=== PATIENT | female | born 1950 | race Caucasian/White ===

== ENCOUNTER 2016-07-12 14:49 | Inpatient (IN) | payer BC ==
[~2016-07-12] VITALS: Ht 160 cm; Wt 91.8 kg
[~2016-07-12 14:49] MED LIST: ASPI1TAB69 PO; CHOL5000 PO; ENAL10TA PO; FURO1TAB62 PO; GLYB5TAB3 PO; LEVO88TA2 PO; METF1000 PO; PANT20 PO
--- NOTE | 2016-07-13 07:25 | MH ---
cc: DIMITRI,NADYA DATE OF ADMISSION 07/13/2016 DIAGNOSIS Four-part fracture displaced surgical neck right humerus. HISTORY She fell on 07/05/2016 while she was getting a shopping cart outside the supermarket. She somehow fell and injured it and went to [facility] for evaluation where they x-rayed her, put her in a sling and referred her for outpatient care. She was first seen by me on July 08, 2016 at which time she was evaluated and sent for a CT scan. She was seen back on July 11, 2016 at which time informed consent was obtained for reverse shoulder arthroplasty of the right shoulder. PERSONAL/SOCIAL HISTORY She does not smoke. Drinks alcohol occasionally. PAST MEDICAL HISTORY 1. She has type 2 diabetes. 2. High blood pressure 3. Hypothyroidism 4. Arthritis PAST SURGERIES 1. Lipoma removed left shoulder in [place]. 2. Lipoma removed from her back several years ago. CURRENT MEDICATIONS 1. Metformin 2. Enalapril 3. DiaBeta 4. Levothyroxine 5. Cervidil 6. Pantoprazole 7. Spironolactone ALLERGIES She claims allergy to LASIX TABLETS. PHYSICAL EXAM This is a somewhat anxious and apprehensive white female who is in a sling and swath. She complains of her rash, but I do not see any, but she states she itchy from being immobilized in the sling and swath. She wanted a prescription for Mycolog cream which is given. HEAD: Normocephalic. EYES: Pupils react to light. FACE: Symmetrical. HEART: Regular rhythm. No murmurs. LUNGS: Clear to auscultation. ABDOMEN: Soft and supple. EXTREMITIES: She denies any pain in the right elbow. Right shoulder is painful. There is some mild ecchymosis, but a lot of swelling. She has a good radial pulse and she moves her fingers well. Detailed neurovascular examination not possible. X-ray done at [facility] and followup x-ray done in my office last week reveals a comminuted four-part fracture of the surgical neck of the humerus with a fracture through the head of the humerus, significant impaction and shortening and about 45 degrees of anterior angulation at the fracture site. A CT scan confirms these findings. The alternatives to treatment discussed in detail with the patient. Open reduction, internal fixation could be done but it would be very difficult to get anatomical fixation and also very likely the fixation will fail at least in the form of recurrence of impaction and varus deformity of the shoulder compromising results. The other options were different types of arthroplasties. Hemiarthroplasties have a high risk of failure of the tuberosities especially at this age and reverse shoulder probably has the most consistent results in terms of restoring function. The potential of infection, hematoma, dislocation, fractures, phlebitis, blood clots, revision, re-surgery, permanent restriction in range of motion and neurovascular injury have all been discussed with the patient in the presence of her and the last time I saw her in the presence of her son who is a nurse. Informed consent has been obtained. No guarantees made. MD BLANCA Magdaleno/RADHA /6:57 AM /7:10 AM
[2016-07-13] MEDS ORDERED: BUPIVACAINE HCL PF 0.5% 30 ML VIAL NERV BLOCK ONE (07:40)
[2016-07-13] MEDS: CHLORHEXIDINE GLUCONATE 4% SOLN 120 ML BTL TOPICAL SCH (10:45)
[2016-07-13] MEDS ORDERED: ceFAZolin 2 GM PREMIX 50 ML IV SCH (10:45)
[2016-07-13] MEDS ORDERED: VANCOMYCIN 1250 MG/NS 250 ML (for 70-84 kg) IV SCH ×2 (10:45)
[2016-07-13] MEDS ORDERED: METOPROLOL TARTRATE 25 MG TAB PO PRN (10:45)
[2016-07-13] MEDS ORDERED: INSULIN HUMAN REGULAR 1,000 UNITS/10 ML VIAL SQ PRN (10:45)
[2016-07-13 10:49] VITALS: BP 128/78; PULSE 91; RESP 20; TEMP 97.9; O2SAT 97
[2016-07-13] MEDS ORDERED: SODIUM CHLORID 0.9% 500 ML IV SCH (11:00)
[2016-07-13] MEDS ORDERED: LACTATED RINGER'S 1000 ML IV SCH (11:00)
[2016-07-13] MEDS ORDERED: FAMOTIDINE 20 MG/2 ML VIAL ONE (11:49)
[2016-07-13] MEDS ORDERED: MIDAZOLAM HCL 5 MG/5 ML VIAL ONE (11:49)
[2016-07-13] MEDS ORDERED: diphenhydrAMINE HCL 50 MG/ML VIAL ONE (11:55)
[2016-07-13] MEDS ORDERED: PHENYLEPHRINE HCL 10 MG/ML VIAL IV ONE (12:00)
[2016-07-13] MEDS ORDERED: PROPOFOL 200 MG/20 ML AMP IV ONE (12:13)
[2016-07-13] MEDS ORDERED: PHENYLEPH/NS 1000 MCG/10 ML SYR IV ONE (12:14)
[2016-07-13] MEDS ORDERED: LACTATED RINGER'S 1000 ML INJ 1,000 ML IV ONE (12:14)
[2016-07-13] MEDS ORDERED: ONDANSETRON HCL 4 MG/2 ML VIAL IV PUSH ONE (12:14)
[2016-07-13] MEDS ORDERED: ePHEDrine/NS 25 MG/5 ML SYR IV ONE (12:14)
[2016-07-13] MEDS ORDERED: TOBRAMYCIN SULFATE 1200 MG VIAL ONE (13:06)
[2016-07-13] MEDS ORDERED: GENTAMICIN SULFATE 80 MG/2 ML VIAL ONE ×2 (13:07)
[2016-07-13] MEDS ORDERED: EPINEPHrine HCL (1:1000) 1 MG/ML VIAL ONE (13:07)
[2016-07-13] MEDS ORDERED: EPINEPHrine HCL (1:1000) 30 MG/30 ML VIAL ONE (13:08)
[2016-07-13] MEDS ORDERED: ACETAMINOPHEN 1000 MG/100 ML VIAL IV ONE (13:55)
[2016-07-13] MEDS ORDERED: fentaNYL CITRATE 250 MCG/5 ML AMP ONE (13:56)
[2016-07-13] MEDS ORDERED: TOBRAMYCIN SULFATE 1200 MG VIAL OTHER ONE (17:44)
[2016-07-13] MEDS ORDERED: VANCOMYCIN HCL 1000 MG VIAL ONE (17:49)
[2016-07-13] MEDS ORDERED: ceFAZolin INJ 1,000 MG VIAL ONE (17:51)
[2016-07-13] MEDS ORDERED: ceFAZolin INJ 1,000 MG VIAL IV ONE (17:53)
--- NOTE | 2016-07-13 19:14 | RADRPT ---
EXAM DATE/TIME: 07/13/2016 18:16 [facility] COMPARISON: No previous studies available for comparison. INDICATIONS : Right shoulder total arthroplasty. MEDICAL HISTORY : None. SURGICAL HISTORY : None. ENCOUNTER: Subsequent ACUITY: 1 day PAIN SCORE: Non-responsive. LOCATION: Right shoulder FINDINGS: The patient is status post right shoulder replacement. The prosthesis appears to be in good position . CONCLUSION: 1. Status post right shoulder replacement with prosthesis in good position. Jb Sanders MD on July 13, 2016 at 18:52 Board Certified Radiologist. This report was verified electronically.
[2016-07-13] MEDS ORDERED: MORPHINE SULFATE 30 MG/30 ML PCA IV SCH (19:30)
[2016-07-13] MEDS ORDERED: Post-op Orders (for Pharmacy) MISC XX ONE (19:30)
[2016-07-13] MEDS ORDERED: NALOXONE HCL 0.4 MG/ML AMP IV PRN (19:30)
[2016-07-13] MEDS ORDERED: diphenhydrAMINE HCL 50 MG/ML VIAL IV PRN (19:30)
[2016-07-13] MEDS ORDERED: ACETAMINOPHEN/HYDROcodone 325 MG/5 MG TAB PO PRN (19:30)
[2016-07-13] MEDS ORDERED: PROMETHAZINE HCL 25 MG TAB PO PRN (19:30)
[2016-07-13] MEDS ORDERED: ONDANSETRON HCL 4 MG/2 ML VIAL IVP PRN (19:30)
[2016-07-13] MEDS ORDERED: MAGNESIUM HYDROXIDE SUSP 30 ML CUP PO PRN (19:30)
[2016-07-13] MEDS ORDERED: SODIUM CHLORIDE 0.9% FLUSH 5 ML FLUSH IVF PRN (19:30)
[2016-07-13] MEDS ORDERED: FUROSEMIDE 20 MG TAB PO PRN (19:45)
[2016-07-13 20:00] VITALS: BP_SYST 127; BP_SYST 97; BP_DIAS 56; BP_DIAS 80; PULSE 101; PULSE 97; RESP 15; RESP 19; TEMP 97.2; TEMP 97.9; O2SAT 95; O2SAT 97
[2016-07-13] MEDS: DEXT 5%-NACL 0.9% 1000 ML INJ 1,000 ML IV SCH (20:00)
--- NOTE | 2016-07-13 20:38 | RADRPT ---
EXAM DATE/TIME: 07/13/2016 19:46 [facility] COMPARISON: No previous studies available for comparison. INDICATIONS : Post op right shoulder. MEDICAL HISTORY : None. SURGICAL HISTORY : Right shoulder total arthroplasty. ENCOUNTER: Initial ACUITY: 1 day PAIN SCORE: Non-responsive. LOCATION: Right shoulder FINDINGS: A right shoulder replacement has been performed. The prosthesis appears to be adequate in position. CONCLUSION: 1. Status post right shoulder replacement with prosthesis adequate in position. Jb Sanders MD on July 13, 2016 at 20:29 Board Certified Radiologist. This report was verified electronically.
[2016-07-13] MEDS: KETOROLAC TROMETHAMINE 30 MG/ML (IVP) VIAL IVP SCH (20:41)
--- NOTE | 2016-07-13 20:41 | EKG ---
Date Performed: 07/13/2016 Time Performed: 11:38:34 PTAGE: 65 years EKG: Sinus rhythm ABNORMAL ECG PREVIOUS TRACING : 05/11/2014 23.07 Compared to prior tracing no significant change DOCTOR: Sachi Mcmahon Interpretating Date/Time 07/13/2016 20:40:39
[2016-07-13] MEDS: SODIUM CHLORIDE 0.9% FLUSH 5 ML FLUSH IVF SCH (21:00)
[2016-07-13] MEDS ORDERED: ZOLPIDEM TARTRATE 5 MG TAB PO PRN (21:00)
[2016-07-13] MEDS: ENALAPRIL MALEATE 10 MG TAB PO SCH (23:38)
[2016-07-14] VITALS (8 sets, daily range): BP systolic 89–167; BP diastolic 59–81; PULSE 94–106; RESP 16–24; TEMP 97.3–98.5; O2SAT 93–98
[2016-07-14] MEDS: KETOROLAC TROMETHAMINE 30 MG/ML (IVP) VIAL IVP SCH ×3 (03:34→21:26)
[2016-07-14] MEDS: ceFAZolin 2 GM PREMIX 50 ML IV SCH ×2 (03:34→09:28)
[2016-07-14 05:58] LABS: BICARBONATE 23.5 MEQ/L (21.0-32.0); POTASSIUM 4.1 MEQ/L (3.5-5.1)
[2016-07-14] MEDS: LEVOTHYROXINE SODIUM 88 MCG TAB PO SCH (06:00)
[2016-07-14] MEDS: DEXT 5%-NACL 0.9% 1000 ML INJ 1,000 ML IV SCH ×3 (06:22→23:51)
[2016-07-14] MEDS: ACETAMINOPHEN 1000 MG/100 ML VIAL IV SCH ×2 (06:23→16:32)
[2016-07-14 06:24] LABS: HEMATOCRIT 32.2 % (35.0-46.0)
[2016-07-14 07:20] LABS: REVIEW FLAG FINAL
--- NOTE | 2016-07-14 07:50 | PD.ORT.PN ---
Subjective Post Op Day #: 1 Pain Scale: 0 Subjective Remarks I heard you had problems in the operating room Block not worn Distance Walked Already got up for BRP Objective Vitals Vital Signs Date Time Temp Pulse Resp B/P Pulse Ox O2 Delivery O2 Flow Rate FiO2 07/14/16 04:00 97.8 102 18 122/70 96 07/14/16 00:01 Nasal Cannula 2.00 07/14/16 00:01 97.3 101 18 127/67 97 07/13/16 20:15 99.5 104 14 123/78 96 Nasal Cannula 3 07/13/16 20:00 97.9 101 19 127/80 97 07/13/16 20:00 106 14 120/72 96 Nasal Cannula 3 07/13/16 19:45 109 14 125/82 97 Nasal Cannula 3 07/13/16 19:30 113 13 116/74 96 Nasal Cannula 3 07/13/16 19:16 99.9 102 16 151/86 94 Nasal Cannula 3 07/13/16 10:49 97.9 91 20 128/78 97 I/O 07/13/16 07/13/16 07/13/16 07/14/16 07/14/16 07/14/16 07:00 15:00 23:00 07:00 15:00 23:00 Intake Total 2776 ml 300 ml Output Total 410 ml Balance 2366 ml 300 ml Intake Oral 240 ml 300 ml IV Total 336 ml Other 2200 ml Output Urine Total 400 ml Estimated Blood Loss 10 ml # Voids 1 2 1 Result Diagram: 07/14/16 0520 07/14/16 0520 Imaging Last 72 hours Impressions Shoulder X-Ray 07/13/16 0000 Signed Impressions: Service Date/Time: Wednesday, July 13, 2016 19:46 - CONCLUSION: 1. Status post right shoulder replacement with prosthesis adequate in position. Jb Sanders MD Shoulder X-Ray 07/13/16 0000 Signed Impressions: Service Date/Time: Wednesday, July 13, 2016 18:16 - CONCLUSION: 1. Status post right shoulder replacement with prosthesis in good position. Jb Sanders MD Objective Remarks Awake, a little foggy, comfortable Arm in S & S Radial pulse good. Block has not started to wear. Assessment & Plan Ortho Post Op Day #: 1 Problem List: Assessment and Plan 1 day post RSA Advised patient that surgery took longer than anticipated and also glenoid component had to be repositioned on basis of x rays. Post op xray shown to patient, it looks satisfactory. Hernando Morgan MD Jul 14, 2016 07:50
[2016-07-14] MEDS ORDERED: ACETAMINOPHEN 1000 MG/100 ML VIAL IV SCH (08:00)
[2016-07-14] MEDS ORDERED: VANCOMYCIN INJ 1,500 MG in SODIUM CHLORID 0.9% 500 ML INJ 500 ML IV SCH (08:00)
[2016-07-14] MEDS: SODIUM CHLORIDE 0.9% FLUSH 5 ML FLUSH IVF SCH ×2 (09:27→21:00)
[2016-07-14] MEDS: PANTOPRAZOLE SOD 20 MG DELAYED RELEASE TAB PO SCH (09:28)
[2016-07-14] MEDS: ENALAPRIL MALEATE 10 MG TAB PO SCH ×2 (09:28→21:26)
[2016-07-14] MEDS: CHOLECALCIFEROL (VIT D3) 1000 UNIT TAB PO SCH (09:28)
[2016-07-14] MEDS: glyBURIDE 5 MG TAB PO SCH (09:32)
[2016-07-14] MEDS: metFORMIN HCL 500 MG TAB PO SCH ×2 (09:32→16:32)
[2016-07-14] MEDS: ACETAMINOPHEN/HYDROcodone 325 MG/5 MG TAB PO PRN ×2 (09:34→13:46)
[2016-07-14] MEDS: ASPIRIN EC 81 MG TABEC PO SCH (09:36)
--- NOTE | 2016-07-14 10:27 | MB ---
cc: BILL MOSS DATE OF CONSULTATION 07/14/2016 DATE OF 1950 ORIGINAL DIAGNOSIS Four-part fracture, displaced of the neck of the right humerus, status post fall. HISTORY OF PRESENT ILLNESS According to the record, the patient was in the supermarket and when getting a shopping cart lost her balance and fell on 07/05/2016. According to the record, she was evaluated by [facility] and the patient was put in a sling with her right arm and told to follow up with Ortho on July 08, 2016. She then was evaluated for her injury and sent for a CT scan. She was seen back on July 11 for a surgical procedure for reverse shoulder arthroplasty of the right shoulder. She is currently resting in the hospital, does suffer from some mild to moderate anxiety but denies any pain of the right shoulder. She states that she still has numbness postop. The patient does note a mild hacking cough and just does not appear to be able to get comfortable in the bed. The shoulder is immobilized with an ice bag. PAST MEDICAL HISTORY 1. Diabetes type 2 with oral hypoglycemics. 2. Hypertension. 3. Arthritis. 4. Hypothyroidism. 5. Anxiety. PAST SURGICAL HISTORY 1. Lipoma removed from the left shoulder. 2. Lipoma removed from her back several years ago. 3. Currently status post right shoulder replacement with prosthesis. ALLERGIES AMOXICILLIN. MEDICATIONS 1. Bowel regimen. 2. Xarelto. 3. Aspirin. 4. Vitamin D. 5. DiaBeta. 6. Glucophage. 7. Protonix. 8. Vancomycin IV. 9. Tylenol IV. 10. Synthroid. 11. Ambien. 12. Vasotec. 13. Toradol. 14. Lasix 20 mg p.r.n. 15. Pain management. 16. Antiemetics p.r.n. nausea. 17. Gentle hydration. SOCIAL HISTORY The patient is , currently lives in the home with her and two children. Social rare alcohol. Denies any tobacco or illicit drugs. REVIEW OF SYSTEMS A 12-point review was obtained. Positives noted in the HPI which includes some cough, mild to moderate anxiety, mild discomfort, not related to the shoulder. Other systems are negative or unremarkable. PHYSICAL EXAMINATION VITAL SIGNS: Temperature is 97.6, pulse 96, respirations 10, blood pressure 128/81. O2 sat 93 on 2 liters nasal cannula O2. GENERAL: Obese, female. Looks to be her stated age, resting in the bed, attempting to get comfortable in the bed. HEENT: Atraumatic, normocephalic. Mucous membranes are pink and moist. PERRLA. NECK: Supple. HEART SOUNDS: S1, S2. Regular rate and rhythm. No murmurs, rubs, or gallops. PULMONARY: Essentially clear anteriorly and posteriorly, without wheezes, rhonchi or rales. ABDOMEN: Round, soft, non-tender, non-distended. Active bowel sounds. MUSCULOSKELETAL: Moves her left arm and lower extremities with purpose. Right arm is immobilized. Mild amount of swelling noted in her fingers. NEUROLOGIC: She is alert, oriented, anxious. Speech is clear. SKIN: [place], warm and dry. PSYCHOLOGICAL: Affect and judgment normal. Anxiety. DIAGNOSTIC DATA Hemoglobin 10.7, hematocrit of 32.2. Chemistry: Sodium 144, potassium 4.1, chloride 112, carbon dioxide 23.5, anion gap 9, BUN 19, creatinine 0.90, GFR 63, random glucose 201, calcium 8. IMAGING STUDIES Shoulder X-ray: In good position with prosthesis. ASSESSMENT AND PLAN 1. Diabetes mellitus. 2. The patient is status post right shoulder replacement for fracture of the head of the humerus with good alignment. 3. Hypertension. 4. Hypothyroidism. 5. Arthritis. 6. Anxiety disorder. Our plan is to follow the patient's medical management and monitor her vital signs as well as any lab work. Ortho will follow her pain management and any needs involved with her surgical procedure. At this time the patient is being seen per Case Management to look at discharge planning for physical therapy when released per Ortho. We will monitor bowel regimen. PUD prophylaxis with Protonix. The patient is currently on Xarelto. She was admitted to inpatient status. Diet progression will be to a regular diabetic diet. The patient currently has gentle hydration and we will monitor those needs. IV antibiotics with vancomycin. Physical therapy will be involved in her care. 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
[2016-07-14] MEDS: CHLORHEXIDINE GLUCONATE 4% SOLN 120 ML BTL TOPICAL SCH (11:02)
[2016-07-14] MEDS ORDERED: GLUCAGON 1 MG/ML VIAL OTHER PRN (15:30)
[2016-07-14] MEDS ORDERED: DEXTROSE 50% IN WATER 50 ML VIAL(D50) IV PUSH PRN (15:30)
[2016-07-14] MEDS: INSULIN ASPART SUPPLEMENTAL SCALE SQ SCH ×2 (16:26→21:52)
[2016-07-14] MEDS: MORPHINE SULFATE 4 MG/ML INJ IV PUSH PRN ×2 (17:50→19:36)
[2016-07-14] MEDS ORDERED: RIVAROXABAN 10 MG TAB PO SCH (18:00)
[2016-07-14] MEDS: DOCUSATE SODIUM 100 MG CAP PO SCH (21:25)
[2016-07-15] MEDS: MORPHINE SULFATE 4 MG/ML INJ IV PUSH PRN ×2 (00:01→04:12)
[2016-07-15 00:19] VITALS: BP 149/80; PULSE 99; RESP 18; TEMP 98.4; O2SAT 95
[2016-07-15 01:05] VITALS: BP 152/74; PULSE 94; RESP 16; TEMP 97.5; O2SAT 96
[2016-07-15 01:20] VITALS: PULSE 87
[2016-07-15] MEDS: ACETAMINOPHEN/HYDROcodone 325 MG/5 MG TAB PO PRN ×3 (01:23→13:28)
[2016-07-15 04:00] VITALS: BP 127/67; PULSE 99; RESP 16; TEMP 97.9; O2SAT 95
[2016-07-15] MEDS: ACETAMINOPHEN 1000 MG/100 ML VIAL IV SCH (04:11)
[2016-07-15] MEDS: KETOROLAC TROMETHAMINE 30 MG/ML (IVP) VIAL IVP SCH ×2 (04:12→12:35)
[2016-07-15] MEDS: LEVOTHYROXINE SODIUM 88 MCG TAB PO SCH (04:12)
[2016-07-15] MEDS: INSULIN ASPART SUPPLEMENTAL SCALE SQ SCH ×2 (05:50→11:00)
[2016-07-15] MEDS: SODIUM CHLORIDE 0.9% FLUSH 5 ML FLUSH IVF SCH (09:00)
[2016-07-15] MEDS: PANTOPRAZOLE SOD 20 MG DELAYED RELEASE TAB PO SCH (09:40)
[2016-07-15] MEDS: ASPIRIN EC 81 MG TABEC PO SCH (09:40)
--- NOTE | 2016-07-15 09:40 | HHI.PR ---
Subjective Remarks Resting in bed Appetite fair Encouraging by mouth fluids Constipation mild in room this a.m. Afebrile (Antoinette Bennett) Objective Objective Results - Vital Signs Date Time Temp Pulse Resp B/P Pulse Ox O2 Delivery O2 Flow Rate FiO2 07/15/16 04:00 97.9 99 16 127/67 95 07/15/16 01:20 87 07/15/16 01:05 97.5 94 16 152/74 96 07/15/16 00:19 Room Air 07/15/16 00:19 98.4 99 18 149/80 95 07/14/16 20:15 99 07/14/16 20:00 98.5 106 18 167/74 96 07/14/16 20:00 Room Air 07/14/16 16:00 97.9 98 24 135/70 98 07/14/16 12:00 98.0 104 20 125/64 94 07/14/16 12:00 98.0 104 20 125/64 94 I/O 07/14/16 07/14/16 07/14/16 07/15/16 07/15/16 07/15/16 07:00 15:00 23:00 07:00 15:00 23:00 Intake Total 1063 ml 480 ml 1656 ml 648 ml Balance 1063 ml 480 ml 1656 ml 648 ml Intake Oral 300 ml 480 ml 720 ml 240 ml IV Total 763 ml 936 ml 408 ml # Voids 1 4 3 1 # Bowel Movements 0 0 (Antoinette Bennett) Result Diagram: 07/14/16 0520 07/14/16 0520 ROS General: Weakness (postop day 2) GI: Other (constipation mild) Neuro/MS: Other (anxiety probably chronic) (Antoinette Bennett) Physical Exam Physical Exam PHYSICAL EXAMINATION GENERAL: This is an obese well-developed, well-nourished female who appears to be in no acute distress. She is alert and awake HEAD: Normocephalic without any lesion or mass noted. Facial features appear symmetric. OROPHARYNGEAL: Oropharynx without erythema or edema. NECK: Supple. No nuchal rigidity or lymphadenopathy. Trachea midline without deviation. CARDIAC: Regular rhythm, regular rate, S1 and S2 are heard. Murmur none no gallops or rubs. LUNGS: Clear to auscultation bilaterally. ABDOMEN: Soft, nontender, no organomegaly or masses. Bowel sounds are heard in all four quadrants. No rebound. No guarding. EXTREMITIES: No lower extremity edema. Pulses equal bilateral. NEUROLOGICAL: Patient mood and affect appropriate. Mild anxiety SKIN:Warm and moist Objective Remarks I just can't get comfortable in this bed (Antoinette Bennett) A/P Assessment and Plan 1. Diabetes mellitus. 2. The patient is status post right shoulder replacement for fracture of the head of the humerus with good alignment. 3. Hypertension. 4. Hypothyroidism. 5. Arthritis. 6. Anxiety disorder. Vital signs reviewed afebrile pulse respiration and blood pressure in normal ranges We will monitor bowel regimen, stool softeners and laxatives to be given today. Drinking coffee also this morning states that will help PUD prophylaxis with Protonix. patient is currently on Xarelto regular diabetic diet., Encourage by mouth fluids We'll recheck labs in the morning, monitor acute kidney injury with B UN Out of bed today and increase activity with physical therapy Anxiety appears to be chronic, supportive care to patient and Discussed With: Nurse, Family, Other (Dr. Moss, patient seen on his behalf) ( Antoinette Bennett) Assessment and Plan Patient seen and examined as above Medications and labs reviewed Plan of care discussed with CLINICAL CASE MANAGER Discussed with patient and family at bedside Agree with above plan of care (Kymberly Moss MD) Antoinette Bennett Jul 15, 2016 09:40 Kymberly Moss MD Jul 15, 2016 13:18
[2016-07-15] MEDS: ENALAPRIL MALEATE 10 MG TAB PO SCH (09:41)
[2016-07-15] MEDS: DOCUSATE SODIUM 100 MG CAP PO SCH (09:41)
[2016-07-15] MEDS: glyBURIDE 5 MG TAB PO SCH (09:41)
[2016-07-15] MEDS: metFORMIN HCL 500 MG TAB PO SCH (09:41)
[2016-07-15] MEDS: CHOLECALCIFEROL (VIT D3) 1000 UNIT TAB PO SCH (09:41)
[2016-07-15] MEDS ORDERED: ASPI325T PO (09:58)
[2016-07-15] MEDS ORDERED: MAGNESIUM HYDROXIDE SUSP 30 ML CUP PO ONE (10:00)
--- NOTE | 2016-07-15 10:00 | HHI.FF ---
Face to Face Verification Diagnosis: (1) DM (diabetes mellitus) (2) Hyperlipidemia (3) Hypothyroidism (4) Hypertension (5) Status post reverse arthroplasty of right shoulder Nursing Nursing: Dressing changes Dressing Changes: Daily dressing change, Coverderm/Primapore I have seen patient Nuvia Mo on 07/15/16. My clinical findings support the need for the requested home health care services because: Limited ability to care for self I certify that my clinical findings support that this patient is homebound because: Post-op weakness Unable to use public transportation Hernando Morgan MD Jul 15, 2016 10:00
--- NOTE | 2016-07-15 10:06 | PD.ORT.PN ---
Subjective Post Op Day #: 2 Pain Scale: not bad Subjective Remarks Block worn and so hurts, denies numbness Objective Vitals Vital Signs Date Time Temp Pulse Resp B/P Pulse Ox O2 Delivery O2 Flow Rate FiO2 07/15/16 04:00 97.9 99 16 127/67 95 07/15/16 01:20 87 07/15/16 01:05 97.5 94 16 152/74 96 07/15/16 00:19 Room Air 07/15/16 00:19 98.4 99 18 149/80 95 07/14/16 20:15 99 07/14/16 20:00 98.5 106 18 167/74 96 07/14/16 20:00 Room Air 07/14/16 16:00 97.9 98 24 135/70 98 07/14/16 12:00 98.0 104 20 125/64 94 07/14/16 12:00 98.0 104 20 125/64 94 I/O 07/14/16 07/14/16 07/14/16 07/15/16 07/15/16 07/15/16 07:00 15:00 23:00 07:00 15:00 23:00 Intake Total 1063 ml 480 ml 1656 ml 648 ml Balance 1063 ml 480 ml 1656 ml 648 ml Intake Oral 300 ml 480 ml 720 ml 240 ml IV Total 763 ml 936 ml 408 ml # Voids 1 4 3 1 # Bowel Movements 0 0 Result Diagram: 07/14/16 0520 07/14/16 0520 Imaging Last 72 hours Impressions Shoulder X-Ray 07/13/16 0000 Signed Impressions: Service Date/Time: Wednesday, July 13, 2016 19:46 - CONCLUSION: 1. Status post right shoulder replacement with prosthesis adequate in position. Jb Sanders MD Shoulder X-Ray 07/13/16 0000 Signed Impressions: Service Date/Time: Wednesday, July 13, 2016 18:16 - CONCLUSION: 1. Status post right shoulder replacement with prosthesis in good position. Jb Sanders MD Objective Remarks A,A,& O Sitting up in chair. S & s on Moves fingers wrist and elbow flexion actively. Denies numbness Dry new drsg on Has ice on it. Assessment & Plan Ortho Post Op Day #: 2 Problem List: Assessment and Plan 2 day post RSA DC withHC To keep S & S on alltimes except cleaning and dressing, no bath or showers Has hydrocodone To take one 325 mg ASA OTC daily for VTE prophylaxis. She was up and BRP surgery evening and up and about, so AMOR lott To see me next Hernando Morgan MD Jul 15, 2016 10:06
[2016-07-15 14:02] VITALS: BP 116/86; PULSE 95; RESP 16; TEMP 97.8; O2SAT 95
--- NOTE | 2016-07-16 23:24 | MP ---
cc: NADYA MORGAN DATE OF SURGERY 07/13/2016 PREOPERATIVE DIAGNOSIS Four-part displaced fracture surgical neck and right humerus with subluxation of the head of the humerus. POSTOPERATIVE DIAGNOSIS Four-part displaced fracture surgical neck and right humerus with subluxation of the head of the humerus. OPERATIVE PROCEDURE 1. Reverse shoulder arthroplasty right shoulder 2. Open reduction internal fixation of greater and lesser tuberosity fractures with autogenous bone graft. SURGEON Dr. William Morgan ANESTHESIA General TECHNIQUE After induction of general anesthesia, the patient was placed on the beach-chair positioner and appropriate positioning carried out with the head and neck properly positioned and the right shoulder girdled free for surgical intervention. The lower extremities were properly and safely positioned. Right upper extremity, right shoulder thoroughly prepped with alcohol and ChloraPrep and draped in routine fashion with double Ioban drapes. A standard deltopectoral incision made, deepened through subcutaneous tissue. Deltopectoral interval was developed saving the cephalic vein laterally. During the procedure, the cephalic vein sprung a leak and, therefore, we had to isolate it, clamp, cut and ligate it. The pectoralis major attachment is detached for about 1 cm. The biceps tendon was identified, traced as far up into the joint as possible and tenotomy was carried out followed by tenodesis of the biceps tendon to the upper margin of the intact pectoralis major. The rest of the tendon was sacrificed. We now began the tedious process of outlining the fracture. The greater tuberosity fracture easily identified and noted. The lesser tuberosity fracture extended all the way beyond the bicipital groove and it was a fairly large fragment with at least being 2 cm wide and about 3 cm superiorly inferior. This made surgery and exposure difficult, but we had to maintain this properly with good attachment of the subscapularis tendon. We did develop it in the rotator cuff interval to get more exposure. The limited subperiosteal dissection upper end of the shaft was carried out. The head of the humerus was basically dislocated out of the glenoid and basically posterior with the fracture surface directly pacing the surgeon. This head fragment was now removed and it was only three-quarters of the head. The other 25% of the articular surface is still attached to the greater tuberosity. Some of the cartilage on that was excised. A jaw area was thoroughly lavaged and suctioned out. Cancellus bone from the head was harvested for later use. As glenoid was exposed, we had good exposure. A guidewire was introduced using the guide for the central hole, but the hole was somewhat shallow and somewhat anterior and, therefore, a freehand technique was used to put the drill and there was good depth and, therefore, the corkscrew reamer guide was placed and the glenoid was reamed followed by introduction of the baseplate and the locking screws. Prior to this, we had prepared the tuberosities with multiple sutures including three #5 FiberWire sutures through the infraspinatus and held with hemostats. A circumferential fiber loop was placed through the lesser trochanter and greater trochanter behind the humerus. A fiber suture #2 was placed through the central portion of the supraspinatus tendon. Two double #2 FiberWire sutures were placed through the infraspinatus and held with hemostats. The shaft was prepared and then trial reduction was carried out at which point x-ray was done which showed, however, that the glenoid baseplate is too inclined and therefore we have to correct it. Joints are dislocated. Trial implants removed. Glenoid glenosphere and the baseplate is removed. The spiral reamer guide for the glenoid was redirected in a more horizontal direction and more retroversion and the reaming was carried out followed by insertion of the baseplate and locking screws. X-rays revealed significant improvement in the position of the baseplate and indeed it is good from a biomechanical perspective even though it could have be a little more horizontal, but we did not want to change it. The glenosphere was put on the baseplate and the locking screw was placed. The shaft was now prepared and we tried the #8 broach which actually is too proud. Therefore, the #6 broach was used which rests on the calcar medially and the height laterally looks just about right. Two drill holes were placed 2 cm below the fracture site and the fiber loop through the supraspinatus was passed through the posterior hole and #2 FiberWire passed through anterior to posterior through the two holes that held with hemostats. The canal was thoroughly suctioned and dried and cobalt cement with tobramycin in it was injected into the canal and pressurized followed by removal of the upper portion of the cement and replacing with the cancellus bone graft which is packed in place followed by introduction of the stem in appropriate retroversion impacted into place and held until the cement solidified. There is good anchoring of the stem and good solidification of the stem. The 4-mm standard insert was used for the trial. Trial reduction is hard to assess because of the tuberosity fragments, but everything looked stable but it is decided to go ahead and use a 4 mm semi constraint . Joints were dislocated followed by introduction of a semi constraint 4-mm insert and then the joint reduced and everything looks good at this point in time including abduction, flexion and rotation stability. The tedious process repair in the tuberosities was now carried out using the double FiberWire sutures that have been passed through the posterior fin of the implant and these were tied with the rack and hitch technique bringing the tuberosity forward and over the implant. The vertical fiber loop was now tied. I then proceeded to pass the #5 FiberWire through the subscapularis insertion to the lesser tuberosity and tied and then the circumferential cerclage fiber loop was tied getting excellent tuberosity repair. The #2 FiberWire in the shaft was then looped through the supraspinatus and tied. Final position, alignment, stability are all good. Residual bone graft was packed into the fracture site. Wound was irrigated with saline solution followed by closure of the fascia with #2 Stratifix, subcutaneous tissue with 2-0 Vicryl, skin with hitesh. Dressing was applied with Xeroform, 4x4s, ABD and Medipore tape. Sling and swath was applied. The patient transferred to recovery room in satisfactory condition. The patient tolerated the procedure well. TRANSFUSIONS AND COMPLICATIONS None. ESTIMATED BLOOD LOSS 600-700 mL. PROGNOSIS Guarded to good. This was both in terms of the tuberosity healing and the baseplate fixation since I had to redo it, but we did get good resistance to the central screw and we also had four locking screws. MD BLANCA Magdaleno/ /7:40 PM /11:02 PM
--- NOTE | 2016-07-21 09:28 | MD ---
cc: NADYA MOSLEY ADMISSION DATE: 07/13/2016 DISCHARGE DATE: 07/15/2016 DATE OF : 1950 ADMISSION DIAGNOSIS 1. Four-part displaced fracture right humerus surgical neck. 2. Subluxation head of the humerus. DISCHARGE DIAGNOSIS 1. Four-part displaced fracture right humerus surgical neck. 2. Subluxation head of the humerus. BRIEF HISTORY/HOSPITAL COURSE History consists of a fall about 8 days prior to surgery resulting in this injury, for which he was seen in the emergency room and had a sling and swathe applied. She was seen by the undersigned last Monday and I sent her for a CT scan and followed her up on Monday, at which time indication was made for reverse shoulder arthroplasty with fixation of tuberosities. The patient was taken to the operating room on the day of admission and underwent surgery of a reverse shoulder arthroplasty with fixation of tuberosities with autogenous bone graft. Postoperative course has been uneventful. She has been up and ambulatory. I had her on Xarelto starting 23-hour postop for DVT prophylaxis but I feel that she is quite active and we can discharge her with adult aspirin daily. Dressings have been changed, dressings were dry. She is in a sling and swathe. No physical or occupational therapy at this time. Home health care for dressing changes ordered. She will see me in the office in 1 week for followup. She has plenty of hydrocodone at home to take for pain. She is advised to constantly put a large ice bag on it for the next several days. Postoperative x-rays are satisfactory. Postoperative labs are satisfactory. She did have one episode of elevated glucose but she has been on Accu-Cheks with coverage as needed. Preoperative workup was satisfactory including the EKG which showed some chronic changes. MD BLANCA Magdaleno/EVITA /10:10 AM /9:21 AM
== END 2016-07-15 13:47 | disposition home health service (06) | DRG 483 ==
LOC: HSDI 07-13 09:38 → N04A 07-13 20:54 → N06B 07-15 00:57
PROVIDERS: ADMIT Orthopaedic Surgery; ATTEND Orthopaedic Surgery
PROC: 0PSC04Z Reposition Right Humeral Head with Internal Fixation Device, Open Approach (ICD-10-PCS; 2016-07-13)
PROC: 0PUC07Z Supplement Right Humeral Head with Autologous Tissue Substitute, Open Approach (ICD-10-PCS; 2016-07-13)
PROC: 3E0T3CZ (ICD-10-PCS; 2016-07-13)
PROC: 0RRJ00Z Replacement of Right Shoulder Joint with Reverse Ball and Socket Synthetic Substitute, Open Approach (ICD-10-PCS; principal; 2016-07-13 13:56)
DX: S42.241A 4-part fracture of surgical neck of right humerus, initial encounter for closed fracture (principal); N17.9 Acute kidney failure, unspecified; I10 Essential (primary) hypertension; E03.9 Hypothyroidism, unspecified; E11.9 Type 2 diabetes mellitus without complications; M19.90 Unspecified osteoarthritis, unspecified site; F41.9 Anxiety disorder, unspecified; K59.00 Constipation, unspecified; Z79.84 Long term (current) use of oral hypoglycemic drugs; W18.30XA Fall on same level, unspecified, initial encounter
CPT/HCPCS: 73020; 73030; 76000; 76937; 80048; 82948; 85014; 85018; 93005; 94150; C1776; J0131; J0171; J0690; J1200; J1580; J1815; J1885; J2250; J2270; J2370; J2405; J3010; J3260; J3370; J3410; J7040; J7042; J7050; J7120